=== PATIENT | female | born 1970 | race African-American/Black ===

== ENCOUNTER 2016-08-30 13:45 | Outpatient (CLI) | payer OTHER ==
--- NOTE | 2016-08-31 08:37 | RAD ---
LEFT KNEE 2 VIEWS: Date: 08/30/16 HISTORY: Disability evaluation, left knee pain. FINDINGS: Mild degenerative changes are present. No fracture, dislocation, or bony destruction is identified. IMPRESSION: Mild left knee osteoarthritis. POS: [facility]
== END 2016-08-30 13:46 | disposition home or self-care (01) ==
LOC: NAV RAD 13:45
PROVIDERS: ATTEND Family Medicine
DX: Z02.71 Encounter for disability determination (principal); M17.12 Unilateral primary osteoarthritis, left knee